=== PATIENT | female | born 1985 ===

== ENCOUNTER 2016-08-20 11:26 | Day surgery (SDC) | payer OTHER ==
[2016-08-12 11:53] VITALS: BMI 30.9
[2016-08-20 12:01] LABS: ADD MANUAL DIFF? NO
[2016-08-20 12:09] LABS: BASO # 0.01 K/mm3 (0.0-2.0); BASO % 0.2 % (0.0-3.0); EOS # 0.1 (0.0-0.7); EOS % 0.9 % (1.5-5.0); GRAN # 3.51 (1.4-6.5); GRAN % 63.4 % (50.0-68.0); HEMATOCRIT 40.1 % (36.0-48.0); LYMPH # 1.7 (1.2-3.4); LYMPH % 30.6 % (22.0-35.0); MEAN CORPUSCULAR HGB CONC 33.7 g/dl (31.0-37.0); MEAN PLATELET VOLUME 9.9 fl (7.0-11.0); MONO # 0.3 (0.1-0.6); MONO % 4.9 % (1.0-6.0); PLATELET COUNT 242 10^3/uL (120.0-450.0); RED CELL DISTRIBUTION WIDTH 12.8 % (11.5-14.5); WHITE BLOOD COUNT 5.5 10^3/ul (4.5-11.0)
[2016-08-20 12:19] LABS: INR 0.95 (0.93-1.08); PARTIAL THROMBOPLASTIN TIME 25.7 Seconds (23.7-30.8)
[2016-08-20 12:25] LABS: BLOOD UREA NITROGEN 13 mg/dL (7-21); CALCIUM 9.3 mg/dL (8.4-10.5); CARBON DIOXIDE 26 mmol/L (21-33); CHLORIDE 102 mmol/L (98-107); GFR AFRICAN-AMERICAN > 60; GLUCOSE,RANDOM 80 mg/dL (70-110); POTASSIUM 4.1 mmol/L (3.6-5.0); SODIUM 136 mmol/L (132-148)
[2016-08-20] MEDS ORDERED: Rocuronium 10 mg/ml (5 ml) ONE (13:14)
[2016-08-20] MEDS ORDERED: Succinylcholine 200 mg/10 ml Inj IV ONE (13:14)
[2016-08-20] MEDS ORDERED: Midazolam 2 MG/2 ML VIAL ONE (13:14)
[2016-08-20] MEDS ORDERED: Propofol 10 mg/ml Inj (20 ML) ONE (13:14)
[2016-08-20] MEDS ORDERED: ePHEDrine 50 mg/ml Inj ONE (14:31)
[2016-08-20] MEDS ORDERED: Neostigmine Methylsulfate 3mg/3ml Syringe IV ONE (14:56)
[2016-08-20] MEDS ORDERED: Triamcinolone Acetonide 40 mg/mL Inj ONE (15:00)
[2016-08-20] MEDS ORDERED: Liquid Adhesive TOP ONE (15:01)
[2016-08-20] MEDS ORDERED: HYDROmorphone 0.5 mg/0.5 ml ISec IVP PRN ×2 (15:27→15:29)
[2016-08-20] MEDS ORDERED: Lactated Ringer's 1,000 ML IV SCH (15:27)
[2016-08-20] MEDS ORDERED: Oxycodone/Acetaminophen 5/325 mg Tab PO PRN (15:34)
[2016-08-20] MEDS ORDERED: HYDROmorphone 0.5 mg/0.5 ml ISec ONE (15:47)
[2016-08-20 16:47] VITALS: BP 110/46; PULSE 93; RESP 20; TEMP 98; O2SAT 99
--- NOTE | 2016-09-03 09:39 | OP ---
PROCEDURE DATE: 08/20/2016 PREOPERATIVE DIAGNOSES: Right ovarian dermoid cyst, left ovarian cyst. POSTOPERATIVE DIAGNOSES: Right ovarian dermoid cyst, left ovarian cyst. OPERATION PERFORMED: Operative laparoscopy, right oophorectomy, left ovarian cystotomy. SURGEON: Dr. Federico Fletcher. HEAD OF SALES PROMOTION: Luisa Fuentes. ANESTHESIA: General endotracheal. ESTIMATED BLOOD LOSS: Minimal. PROCEDURE: After informed consent was discussed with the patient prior to her procedure, all options were given, including an oophorectomy if the entire dermoid would occupy the entire ovary, also emily ent consented for possible laparotomy. All consents were signed and agreed to. The patient was brou ght into the operating room. The patient underwent general endotracheal anesthesia. She was prepped and draped in usual sterile fashion. Childs catheter was inserted. Examination of the pelvic area r evealed the patient to have approximately an 8-10 cm right adnexal mass. Left adnexa was felt to hav e an approximately 4 cm cystic mass. A weighted speculum was inserted into the vaginal vault. Anter ior lip of the cervix was visualized, grasped with a single tooth tenaculum. Endocervical canal was dilated and a Kroner catheter was inserted. Attention was turned to the abdomen where a subumbilical incision was made. It was brought down to the fascia. The fascia was opened. Rectus muscle was sp lit. The peritoneum was visualized, grasped with 2 hemostats, opened and a blunt port trocar was ins erted. Visualization of the pelvic cavity was immediately performed. The patient was noted to have a left ovarian cyst that was follicular in nature, measuring approximately 4 x 3 cm in size. Left tu be was found to be normal. Uterus itself was found to be normal in size. No fibroids noted. The cu l-de-sac was found to be clean and devoid of any endometriosis. The right ovary was visualized, note d to be approximately 10 x 10 cm in size. It was noted to be clearly a cystic mass with no external excrescencies. On full observation of this ovary, it was felt that the majority of this ovary was oc cupied by the dermoid cyst. This would be evaluated further as the operation was performed. The rig ht salpinx was found to be normal. Mid abdominal examination revealed no abnormalities. Upper abdom inal examination revealed no abnormalities. The liver was found to be normal. No signs of Dharmesh-Walter -Reymundo syndrome. With the patient placed in deep Trendelenburg position, a second puncture was made in the suprapubic area under direct visualization. A following puncture was made in the patient's l eft lower quadrant with a 5 mm trocar for extra added ability to grasp the tissue. With these punctu res made all under direct visualization, the bowels were moved back and the ovary itself was then exp osed. Using a gentle Colora grasper, the edge of the ovarian capsule was visualized, grasped and he ld for stabilization. Using a small cautery tipped pen, an incision was made in the serosal surface of the ovary extending through approximately 60% of the ovarian dermoid. No penetration into the darnell moid occurred during this part of the procedure. Using blunt dissection, the ovarian capsule itself was attempted to be from the serosal surface. Numerous attempts were made throughout the e ntire ovarian area and this part of the procedure was abandoned as there was no separation of tissue. The superior portion of this dermoid mass was then opened without spillage and a large bore suction was inserted. Hair was noted throughout this entire area. Once the fluid was suctioned out, contin ued visualization of this ovary was made. It was noted that approximately 90-95% of this ovarian nor mal tissue itself was occupied by this entire dermoid. It was felt that there was no saving this ova ry, so a laparoscopic oophorectomy then was performed. The salpinx was saved without difficulty and a Harmonic scalpel was used for this procedure. Once the ovary was removed, the ovary itself was patricia luh in an EndoCatch bag, decompressed further and then taken out through the umbilical port. There w as minimal spillage which was set along the cul-de-sac. This was suctioned easily with a laparoscopi c suction device. Attention was turned to the left ovary where a left ovarian cystotomy was performe d. Clear yellow fluid came from this area. The pelvis then was thoroughly irrigated with copious am ounts of fluid. There was no visualized dermoid fluid noted floating in the peritoneal fluid. The f luid was aspirated without difficulty. All possible bleeding points were checked and found to be all hemostatic. As a note, Luisa Fuentes was critical in allowing me to complete this procedure lapa roscopically. The procedure was terminated at this point. The pneumoperitoneum was relieved. Again , no bleeding was noted. All instruments were removed. The fascia was closed with 0 Vicryl; 4-0 Mon ocryl was used for the skin incisions. The patient was awakened, sent to the recovery room in stable condition. Federico Fletcher MD cc: [id number] TT: 09/03/2016 09:38:32 tn
== END 2016-08-20 19:10 | disposition home or self-care (01) ==
LOC: SDS 11:26
PROVIDERS: ATTEND Obstetrics & Gynecology Gynecology
DX: D27.0 Benign neoplasm of right ovary (principal); N83.202 Unspecified ovarian cyst, left side
CPT/HCPCS: 36415; 58661; 58679; 80048; 84703; 85025; 85610; 85730; 86850; 86900; 88307; J0330; J0690; J1100; J1170; J1885; J2250; J2405; J2704; J2710; J3010; J3301; J7120 ×2

== ENCOUNTER 2017-10-16 13:53 | Emergency (ER) | payer BC, OTHER ==
[2017-10-16 13:53] VITALS: BMI 30.9
[2017-10-16 14:31] VITALS: RESP 18; TEMP 98.6
[2017-10-16] MEDS ORDERED: Sodium Chloride 0.9% 1,000 ML IV STA (15:42)
[2017-10-16 16:40] LABS: EOS # 0.1 (0.0-0.7); EOS % 1.3 % (1.5-5.0); GRAN # 3.32 (1.4-6.5); GRAN % 63.2 % (50.0-68.0); HEMOGLOBIN 15.3 g/dL (12.0-16.0); LYMPH # 1.4 (1.2-3.4); LYMPH % 26.9 % (22.0-35.0); MEAN CORPUSCULAR HEMOGLOBIN 31.2 pg (25.0-35.0); MEAN CORPUSCULAR HGB CONC 34.7 g/dl (31.0-37.0); MEAN PLATELET VOLUME 9.7 fl (7.0-11.0); MONO # 0.5 (0.1-0.6); MONO % 8.6 % (1.0-6.0); PH,URINE 5.5 (4.7-8.0); RBC 4.9 10^6/uL (3.5-6.1); RED CELL DISTRIBUTION WIDTH 12.6 % (11.5-14.5); URINE APPEARANCE TURBID (CLEAR); URINE BILIRUBIN NEGATIVE (NEGATIVE); URINE BLOOD LARGE (NEGATIVE); URINE COLOR YELLOW (YELLOW); URINE GLUCOSE (UA) NEGATIVE (NEGATIVE); URINE LEUKOCYTE ESTERASE NEGATIVE Leu/uL (NEGATIVE); URINE PROTEIN TRACE mg/dL (<30 mg/dL); URINE UROBILINOGEN 0.2 E.U./dL (<1 E.U./dL); WHITE BLOOD COUNT 5.3 10^3/ul (4.5-11.0)
[2017-10-16 16:44] LABS: URINE BACTERIA TRACE (NEG); URINE WBC 0 - 2 /hpf (0-6)
[2017-10-16 16:50] LABS: ALB/GLOB RATIO 1.3 (1.1-1.8); ALBUMIN 4.8 g/dL (3.0-4.8); ALT/SGPT 29 U/L (7-56); AST/SGOT 49 U/L (14-36); BLOOD UREA NITROGEN 12 mg/dL (7-21); CALCIUM 10.2 mg/dL (8.4-10.5); GFR AFRICAN-AMERICAN > 60; GFR NON-AFRICAN AMERICAN > 60; LIPASE 103 U/L (23-300)
--- NOTE | 2017-10-16 17:05 | ED PDOC ---
Arrival/HPI - General Chief Complaint: Abdominal Pain Time Seen by Provider: 10/16/17 15:22 Historian: Patient - History of Present Illness Narrative History of Present Illness (Text): 10/16/17 17:02 32-year-old female presents today with abdominal pain has been ongoing for the past 4 days. Patient is complaining of multiple episodes of diarrhea. She denies fevers or chills. She is complaining of a crampy abdominal pain. Patient denies urinary symptoms. Patient denies radiation of pain to the back. Patient states the pain is located across the entire upper abdomen. Patient denies chest pain or shortness of breath. Time/Duration: Other (4 days) Symptom Onset: Gradual Symptom Course: Unchanged Quality: Aching, Cramping Severity Level: Mild Past Medical History - Provider Review Nursing Documentation Reviewed: Yes - Travel History Have you recently traveled outside [place] w/in the past 3 mons?: No - Infectious Disease Hx of Infectious Diseases: None - Tetanus Immunization Tetanus Immunization: Unknown - Reproductive Menopause: No - Cardiac Hx Cardiac Disorders: No Hx Pacemaker: No - Pulmonary Hx Respiratory Disorders: No - Hematological/Oncological Hx Blood Transfusions: No Hx Blood Transfusion Reaction: No - Musculoskeletal/Rheumatological Hx Musculoskeletal Disorders: No - Psychiatric Hx Emotional Abuse: No Hx Physical Abuse: No Hx Substance Use: No - Anesthesia Hx Anesthesia Reactions: (DOESN'T THINK SHE HAD GENERAL) - Suicidal Assessment Feels Threatened In Home Enviroment: No Family/Social History - Physician Review Nursing Documentation Reviewed: Yes Family/Social History: Unknown Family HX Smoking Status: Unknown If Ever Smoked Hx Alcohol Use: Yes (SOCIALLY) Hx Substance Use: No Allergies/Home Meds Allergies/Adverse Reactions: Allergies No Known Allergies Allergy (Verified 08/12/16 11:54) Home Medications: Home Meds Medication Instructions Recorded Confirmed oxyCODONE/Acetaminophen [Percocet 1 - 2 PO Q6 PRN 08/20/16 5/325 mg Tab] Review of Systems - Review of Systems Constitutional: absent: Fatigue, Fevers Respiratory: absent: SOB, Cough Cardiovascular: absent: Chest Pain, Palpitations Gastrointestinal: Abdominal Pain, Diarrhea, Nausea. absent: Constipation, Vomiting Genitourinary Female: absent: Dysuria, Frequency, Hematuria Musculoskeletal: absent: Arthralgias, Back Pain, Neck Pain Skin: absent: Rash, Pruritis Neurological: absent: Headache, Dizziness Psychiatric: absent: Anxiety, Depression, Suicidal Ideation Physical Exam Vital Signs Reviewed: Yes Vital Signs Temp Pulse Resp BP Pulse Ox 10/16/17 19:22 78 18 132/85 98 10/16/17 14:31 98.6 F 79 18 123/77 97 Temperature: Afebrile Blood Pressure: Normal Pulse: Regular Respiratory Rate: Normal Appearance: Positive for: Well-Appearing, Non-Toxic, Comfortable Pain Distress: None Mental Status: Positive for: Alert and Oriented X 3 - Systems Exam Head: Present: Atraumatic Mouth: Present: Moist Mucous Membranes Neck: Present: Normal Range of Motion Respiratory/Chest: Present: Clear to Auscultation, Good Air Exchange. No: Respiratory Distress, Accessory Muscle Use Cardiovascular: Present: Regular Rate and Rhythm, Normal S1, S2. No: Murmurs Abdomen: Present: Tenderness (+ ruq/epigastric and left LOWER quadrant abdominal tenderness), Normal Bowel Sounds. No: Distention, Rebound, Guarding Back: Present: Normal Inspection. No: CVA Tenderness, Midline Tenderness, Paraspinal Tenderness Upper Extremity: Present: Normal Inspection, Normal ROM Lower Extremity: Present: Normal ROM Neurological: Present: GCS=15 Skin: Present: Warm, Dry, Normal Color. No: Rashes Psychiatric: Present: Alert, Oriented x 3 Medical Decision Making ED Course and Treatment: 10/16/17 17:18 Patient is nontoxic well appearing with stable vital signs presenting with 4 day history of abdominal pain and diarrhea. CBC: wnl CMP: Lipase: Urinalysis: CAT scan: FINDINGS: LOWER THORAX: Unremarkable. LIVER: Unremarkable. No gross lesion or ductal dilatation. GALLBLADDER AND BILE DUCTS: Unremarkable. PANCREAS: Unremarkable. No gross lesion or ductal dilatation. SPLEEN: Unremarkable. ADRENALS: Unremarkable. No mass. KIDNEYS AND URETERS: Unremarkable. No hydronephrosis. No solid mass. VASCULATURE: Unremarkable. No aortic aneurysm. BOWEL: Colitis, acute primarily affecting the left the right diana colon. Similar less pronounced changes identified in the transverse and descending colon. The findings extend to the rectum. APPENDIX: No abnormalities to suggest acute appendicitis. No right lower quadrant inflammatory processes identified. PERITONEUM: Unremarkable. No free fluid. No free air. LYMPH NODES: Unremarkable. No enlarged lymph nodes. BLADDER: Unremarkable. REPRODUCTIVE: Unremarkable. Right adnexal mass/dermoid identified previously is no longer seen , presumably surgically excised. BONES: No acute fracture. OTHER FINDINGS: None. IMPRESSION: Acute colitis primarily affecting right hemicolon and to lesser extent descending colon, sigmoid and rectum. No associated free air, loculated air, drainable collection. Patient reassessment: pt feeling better vitals stable. Patient was started on Cipro and Flagyl by mouth Discussed all results with patient in depth stressed the importance of taking antibiotics as prescribed. stressed the importance of follow-up with a GI specialist regarding her colitis And need for colonoscopy for possible evaluation of IBD. advised immediate return if symptoms worsen,persist or if new symptoms develop. Patient verbalizes understanding of discharge instructions and need for immediate followup. all aspects of this case were discussed the attending of record. Impression: Colitis Motrin every 6 hours as needed for pain Pepcid one tablet daily Cipro one tablet twice daily. x10 days Flagyl one tablet three times daily x10 days Follow up with primary care physician within the next 2 days. Follow up with GI specialist within the next 2 days. Return immediately if symptoms worsen persist or if new symptoms develop: High fevers, increasing pain, vomiting, diarrhea or any other concerning symptoms develop Reassessment Condition: Re-examined, Improved - Lab Interpretations Lab Results: 10/16/17 14:33 10/16/17 14:33 Lab Results 10/16/17 14:33: Sodium 140, Potassium 4.1, Chloride 102, Carbon Dioxide 25, Anion Gap 17, BUN 12, Creatinine 0.6 L, Est GFR ( Amer) > 60, Est GFR ( Non-Af Amer) > 60, Random Glucose 85, Calcium 10.2, Total Bilirubin 0.3, AST 49 H, ALT 29, Alkaline Phosphatase 64, Total Protein 8.4 H, Albumin 4.8, Globulin 3.6, Albumin/Globulin Ratio 1.3, Lipase 103 10/16/17 14:33: Urine Color Yellow, Urine Appearance Turbid, Urine pH 5.5, Ur Specific [place] >= 1.030, Urine Protein Trace H, Urine Glucose (UA) Negative, Urine Ketones Negative, Urine Blood Large H, Urine Nitrate Negative, Urine Bilirubin Negative, Urine Urobilinogen 0.2, Ur Leukocyte Esterase Negative, Urine RBC 2 - 5, Urine WBC 0 - 2, Ur Epithelial Cells 3 - 4, Urine Bacteria Trace 10/16/17 14:33: WBC 5.3, RBC 4.90, Hgb 15.3, Hct 44.1, MCV 90.0, MCH 31.2, MCHC 34.7, RDW 12.6, Plt Count 233, MPV 9.7, Gran % 63.2, Lymph % (Auto) 26.9, [place] % (Auto) 8.6 H, Eos % (Auto) 1.3 L, Baso % (Auto) 0.0, Gran # 3.32, Lymph # ( Auto) 1.4, [place] # (Auto) 0.5, Eos # (Auto) 0.1, Baso # (Auto) 0.00 - RAD Interpretation Radiology Orders: 10/16/17 15:42 ABD & PELVIS IV CONTRAST ONLY [CT] Stat - Medication Orders Current Medication Orders: Discontinued Medications Ciprofloxacin (Cipro) 500 mg PO ONCE STA PRN Reason: Protocol Stop: 10/16/17 19:10 Famotidine (Pepcid) 20 mg IVP STAT STA Stop: 10/16/17 15:43 Last Admin: 10/16/17 16:28 Dose: 20 mg IVP Administration Document 10/16/17 16:28 [place] (Rec: 10/16/17 16:28 [email or web address] Charges for Administration # of IVP Administrations 1 Sodium Chloride (Sodium Chloride 0.9%) 1,000 mls @ 999 mls/hr IV .Q1H1M STA Stop: 10/16/17 16:42 Last Admin: 10/16/17 16:28 Dose: 999 mls/hr eMAR Start Stop Document 10/16/17 16:28 NE (Rec: 10/16/17 16:28 [email or web address]) Intravenous Solution Start Date 10/16/17 Start Time 16:28 Ketorolac Tromethamine (Toradol) 30 mg IVP STAT STA Stop: 10/16/17 19:10 Metronidazole (Flagyl) 500 mg PO STAT STA PRN Reason: Protocol Stop: 10/16/17 19:10 Disposition/Present on Arrival - Present on Arrival Any Indicators Present on Arrival: No History of DVT/PE: No History of Uncontrolled Diabetes: No Urinary Catheter: No History of Decub. Ulcer: No History Surgical Site Infection Following: None - Disposition Have Diagnosis and Disposition been Completed?: Yes Diagnosis: Colitis Disposition: HOME/ ROUTINE Disposition Time: 19:33 Patient Plan: Discharge Condition: GOOD Discharge Instructions (ExitCare): Inflammatory Bowel Disease (DC) Additional Instructions: Motrin every 6 hours as needed for pain Pepcid one tablet daily Cipro one tablet twice daily. x10 days Flagyl one tablet three times daily x10 days Follow up with primary care physician within the next 2 days. Follow up with GI specialist within the next 2 days. Return immediately if symptoms worsen persist or if new symptoms develop: High fevers, increasing pain, vomiting, diarrhea or any other concerning symptoms develop Prescriptions: Ciprofloxacin [Cipro] 500 mg PO BID #20 tab Famotidine [Pepcid] 20 mg PO DAILY #30 tab Ibuprofen [Motrin] 600 mg PO Q6H PRN #20 tab PRN Reason: pain/fever reduction metroNIDAZOLE [Flagyl] 500 mg PO TID #30 tab Referrals: Thea Beltran MD [Medical Doctor] - Follow up with primary Karlene Richardson MD [Staff Provider] - Follow up with primary Forms: [facility] (T[place]isian), WORK NOTE
[2017-10-16] MEDS ORDERED: Iohexol 350 MG/100 ML VIAL ONE (17:07)
--- NOTE | 2017-10-16 18:26 | CT ---
PROCEDURE: CT Abdomen and Pelvis with contrast HISTORY: Abdominal pain. Negative test (concurrent with this examination). COMPARISON: 07/27/2016. CT abdomen and pelvis 06/19/2016 pelvic ultrasound. Summary of findings on the comparison examination: 10.6 cm complex right ovarian mass. TECHNIQUE: Contrast dose: 100 cc Omnipaque 350. Radiation dose: Total exam DLP = 565.17 mGy-cm. This CT exam was performed using one or more of the following dose reduction techniques: Automated exposure control, adjustment of the mA and/or kV according to patient size, and/or use of iterative reconstruction technique. FINDINGS: LOWER THORAX: Unremarkable. LIVER: Unremarkable. No gross lesion or ductal dilatation. GALLBLADDER AND BILE DUCTS: Unremarkable. PANCREAS: Unremarkable. No gross lesion or ductal dilatation. SPLEEN: Unremarkable. ADRENALS: Unremarkable. No mass. KIDNEYS AND URETERS: Unremarkable. No hydronephrosis. No solid mass. VASCULATURE: Unremarkable. No aortic aneurysm. BOWEL: Colitis, acute primarily affecting the left the right diana colon. Similar less pronounced changes identified in the transverse and descending colon. The findings extend to the rectum. APPENDIX: No abnormalities to suggest acute appendicitis. No right lower quadrant inflammatory processes identified. PERITONEUM: Unremarkable. No free fluid. No free air. LYMPH NODES: Unremarkable. No enlarged lymph nodes. BLADDER: Unremarkable. REPRODUCTIVE: Unremarkable. Right adnexal mass/dermoid identified previously is no longer seen, presumably surgically excised. BONES: No acute fracture. OTHER FINDINGS: None. IMPRESSION: Acute colitis primarily affecting right hemicolon and to lesser extent descending colon, sigmoid and rectum. No associated free air, loculated air, drainable collection.
[2017-10-16 19:23] VITALS: BP 132/85; PULSE 78
[2017-10-16 20:47] VITALS: O2SAT 100
--- NOTE | 2017-10-17 09:11 | CARD ---
APPROVED REPORT EKG Measurement Heart [id number] <Conclusion> Normal sinus rhythm Normal ECG
== END 2017-10-16 20:44 | disposition home or self-care (01) ==
LOC: ED 13:53
DX: K52.9 Noninfective gastroenteritis and colitis, unspecified (principal)
CPT/HCPCS: 74177; 80053; 81001; 83690; 85025; 87086; 93005; 96374; 96375; 99284; J1885; J7030; Q9967

== ENCOUNTER 2017-12-26 08:43 | Day surgery (SDC) | payer OTHER ==
[2017-12-26] MEDS ORDERED: Propofol 10 mg/ml Inj (20 ML) ONE (10:55)
[2017-12-26] MEDS ORDERED: Midazolam 2 MG/2 ML VIAL ONE (11:04)
[2017-12-26] MEDS ORDERED: Sodium Chloride 0.9% 1,000 ML IV SCH (11:15)
[2017-12-26 11:33] VITALS: O2SAT 100
[2017-12-26 12:08] VITALS: BP 108/66; PULSE 70; RESP 16; TEMP 97.7
== END 2017-12-26 12:32 | disposition home or self-care (01) ==
LOC: ENDO 08:43
PROVIDERS: ATTEND Internal Medicine Gastroenterology
DX: K29.30 Chronic superficial gastritis without bleeding (principal); K29.80 Duodenitis without bleeding
CPT/HCPCS: 43239; 84703; 88305; 88342; J2001; J2250; J2704; J3010; J7030; J7040